=== PATIENT | male | born 1960 | race Caucasian/White ===

== ENCOUNTER 2023-05-17 12:29 | Observation (INO) | payer MEDICARE, SELFPAY ==
[2023-05-17] VITALS (7 sets, daily range): BP systolic 141–180; BP diastolic 78–92; PULSE 62–94; RESP 14–20; TEMP 36–36.8; O2SAT 95–100; BMI 28.1; BMI 29.0
--- NOTE | 2023-05-17 13:22 | EKG12_ITS ---
Test Reason : CP Blood Pressure : / mmHG Vent. Rate : 074 BPM Atrial Rate : 074 BPM P-R Int : 166 ms QRS Dur : 102 ms QT Int : 390 ms P-R-T Axes : 045 -22 079 degrees QTc Int : 432 ms Normal sinus rhythm Septal infarct , age undetermined Abnormal ECG Confirmed by ELOISE NUNES, TREASURE ([id number]), editor map LESLIE MONTALVO ([id number]) on 05/19/2023 1:39:53 PM Referred By: RU/ES Confirmed By:TREASURE NAVAS MD
--- NOTE | 2023-05-17 13:29 | NURSING ---
NO OLD EKGS
[2023-05-17] MEDS: Aspirin 81 MG TAB.CHEW 324 MG PO (13:31)
[2023-05-17 13:37] LABS: Absolute Lymphocyte Count 2.95 X10^3/uL (0.83-4.51); Absolute Neutrophil Count 4.3 X10^3/uL (2.0-7.7); Basophil# 0.04 X10^3/uL; Basophil% 0.5 % (0-1); Eosinophil# 0.16 X10^3/uL; Hematocrit 45.6 % (40-54); Hemoglobin 14.4 g/dL (13.0-16.5); Lymphocyte # 2.95 X10^3/ul (0.83-4.51); Lymphocyte % 36.2 % (19-41); Mean Corp Hgb Conc 31.6 g/dL (32-36); Mean Corpuscular Hgb 28.2 pg (27.0-32.0); Mean Corpuscular Volume 89.4 fL (80-94); Monocyte# 0.66 X10^3/uL; Monocyte% 8.1 % (0-10); NRBC Flagged by Analyzer 0 % (0-5); Neutrophil # 4.31 X10^3/uL (2.7-7.7); Platelet Count 204 K/mm3 (150-450); RBC Distribution Width CV 14.6 % (11.6-14.6); RBC Distribution Width SD 47.4 fl (35.1-43.9); White Blood Count 8.1 K/mm3 (4.4-11.0)
--- NOTE | 2023-05-17 13:45 | RAD_ITS ---
STUDY: X-RAY CHEST REASON FOR EXAM: Male, 62 years old. Chest pain TECHNIQUE: Single AP portable view of the chest. COMPARISON: None. FINDINGS: EKG electrodes are seen. Hyperinflation. Mild degree of vascular congestion. There is no demonstrated pleural abnormality. Normal size heart. Normal mediastinum and andreina. Normal visualized pulmonary arteries. Normal visualized aortic arch and descending thoracic aorta. There are diffuse degenerative changes of the visualized thoracic spine. Normal visualized ribs, clavicles, and shoulders. There is no demonstrated abnormality of the visualized soft tissue structures of the upper abdomen. RAD/Chest 1 View (Portable) IMPRESSION: Mild degree of vascular congestion. Electronically Signed: Paxton Nagel MD at 14:27 EDT ,
[2023-05-17 13:49] LABS: International Normalized Ratio 0.9; Prothrombin Time (Protime)PT. 12.3 SECONDS (11.7-14.9)
[2023-05-17 13:50] LABS: Partial Thromboplast Time 33.5 Seconds (24.1-36.2)
[2023-05-17 13:55] LABS: Anion Gap 4 (5-15); BUN 11 mg/dL (7-18); BUN/Creat Ratio 12.6 RATIO (10-20); Calcium,Total 9.3 mg/dL (8.5-10.1); Chloride 103 mmol/L (98-107); Creatinine, Serum 0.87 mg/dL (0.70-1.30); EST Glomerular Filtration Rate 94 mL/min (>60); Est Glom Filt Rate - Afr Amer 114 mL/min (>60); Estimated Creatinine Clearance 103.87 ml/min; Glucose 96 mg/dL (74-106); Potassium 3.9 mmol/L (3.5-5.1); Sodium Level 134 mmol/L (136-145); Troponin-I HS (w/2H Reflex) 19 pg/mL (3.0-78.0)
--- NOTE | 2023-05-17 14:08 | EDS_ITS ---
HPI History of Present Illness Chief Complaint: Chest Pain Informant: patient Onset/Context/Timing Onset: Days (5) Activity at onset: sudden Timing: Intermittent and Lasts (A couple minutes) Quality: Positive for Sharp Location: Left Parasternal, Left Chest and - (Left arm) Worsened By: Exertion Relieved By: Rest and NTG Associated Symptoms: Positive for Lightheadedness and Palpitations; Negative for Nausea, Vomiting, Diaphoresis, Dyspnea, Cough, Fever or Acid Reflux Narrative Narrative: Patient presents with chest pain that has been intermittent over the last 5 days. Patient states when it comes on it only last for couple minutes. Somet imes, it lasts for 30 to 45 minutes. Patient states that when it lasts that long he takes a sublingual nitroglycerin which relieves his pain. Patient states the pain is over the left parasternal area and radiates into his left chest and left arm. Patient states his pain comes on with exertion and goes away with rest. Patient admits to some lightheadedness when he stands up too quickly at times. Patient also admits to some occasional palpitations. Patient states this pain is different than with his prior heart attack. [facility] Medical History (Updated 05/17/23 @ 14:[address] Donaldo Encinas DO) Coronary artery disease Fibromyalgia Myocardial infarction Home Medications aspirin 81 mg tablet,delayed release (Ecotrin Low Strength) 81 mg PO DAILY HEART HEALTH 05/17/23 [History Last Taken 05/15/23] coQ10 (ubiquinol) 100 mg capsule 100 mg PO DAILY 05/17/23 [History Last Taken 05/17/23] cod liver oil 1 cap PO DAILY 05/17/23 [History Last Taken 05/17/23] Allergy/AdvReac Type Severity Reaction Status Date / Time gabapentin Allergy Intermediate Hives Verified 05/17/23 14:36 tramadol [From Ultram] AdvReac Intermediate super Verified 05/17/23 14:36 jittery Surgical History (Updated 05/17/23 @ 14:[address] Donaldo Encinas DO) History of surgical removal of intestinal structure Hx of appendectomy Hx of heart artery stent Social History (Updated 05/17/23 @ 14:[address] Donaldo Encinas DO) Smoking Status: Former smoker substance use type: marijuana ROS ROS ED Constitutional Constitutional ED: Denies chills or fever(s) Eyes Eyes: Denies blurry vision or change in vision ENT ENT ED: Denies rhinorrhea or sore throat Cardiovascular Cardiovascular: Reports chest pain and palpitations Respiratory/Chest Respiratory/Chest: Denies cough or dyspnea Gastrointestinal Gastrointestinal: Denies abdominal pain, nausea or vomiting Genitourinary Genitourinary ED: Denies dysuria or hematuria Musculoskeletal Musculoskeletal: Reports back pain and neck pain Integumentary Denies abscess or rash Neurologic Neurologic: Denies headache(s) or weakness Allergic/Immunologic Allergic/Immunologic ED: Denies mouth swelling or urticaria EXAM Physical Exam Const Vital Signs: 05/17/23 12:30 05/17/23 14:00 05/17/23 14:51 Temperature 97.5 F L 96.8 F L Temperature Source Temporal Temporal Pulse Rate 94 65 66 Respiratory Rate 14 16 20 H Blood Pressure 180/89 H 141/80 H 154/81 H Blood Pressure Mean 119 100 105 Pulse Ox 98 100 96 Oxygen Delivery Method Room Air Room Air Room Air 05/17/23 13:31 Temperature Temperature Source Pulse Rate Respiratory Rate Blood Pressure Blood Pressure Mean Pulse Ox 96 Oxygen Delivery Method Room Air Positive well nourished and well developed General Appearance ED: well developed and NAD HEENT normocephalic and atraumatic Eyes PERRL and EOMs intact bilaterally Neck supple and no JVD Chest Wall palpation of chest normal Resp normal respiratory effort and clear to auscultation bilaterally Effort and Inspection: Negative for respiratory distress Cardio regular rate and regular rhythm GI normal to inspection, nondistended, normoactive bowel sounds, soft to palpation, non-tender and non-distended Extremity normal to inspection General Extremety ED: Negative for edema or tenderness General Extremity: Negative for edema Neuro oriented x3, CN's II-XII intact bilaterally and no sensory deficits noted Sensorium / Orientation: awake and alert Motor Exam: strength 5/5 throughout Psych mental status grossly normal Heart Score History: Moderately Suspicious ECG: Nonspecific Repolarization Age: >45 - <65 years Risk Factors: >/= 3 Risk Factors or History of CAD Troponin: </= Normal Limit Score: 5 MDM MDM MDM Narrative Medical decision making narrative: Differential diagnosis includes cardiac dysrhythmia, cardiac ischemia, pneumonia, pneumothorax, electrolyte abnormality, anemia, musculoskeletal pain, and anxiety. EKG will be obtained to assess for cardiac dysrhythmia and cardiac ischemia. Chest x-ray will be obtained to assess for pneumonia and pneumothorax. CBC will be obtained to assess for leukocytosis and anemia. Basic metabolic profile will be obtained to assess for electrolyte abnormality and renal function. PT with INR and PTT will be obtained to assess for coagulopathy. High-sensitivity troponin will be obtained to assess for cardiac ischemia. 2-hour repeat high-sensitivity troponin will be obtained to assess for ongoing cardiac ischemia. Patient has a Wells score of 0. I do not feel this is from a pulmonary embolism. Lab Data Attestation: I reviewed the patient's lab results. Lab results narrative: CBC was reviewed and was within normal limits. Basic metabolic profile was reviewed and was within normal limits. PT with INR and PTT were reviewed and were within normal limits. Initial high-sensitivity troponin was reviewed and was normal at 19. Labs: Laboratory Results - last 24 hr 05/17/23 13:04 WBC 8.1 RBC 5.10 Hgb 14.4 Hct 45.6 MCV 89.4 MCH 28.2 MCHC 31.6 L RDW Std Deviation 47.4 H RDW Coeff of Yamile 14.6 Plt Count 204 MPV 10.0 Immature Gran % (Auto) 0.200 Neut % (Auto) 53.0 Lymph % (Auto) 36.2 [place]oshone % (Auto) 8.1 Eos % (Auto) 2.0 Baso % (Auto) 0.5 Absolute Neuts (auto) 4.3 Absolute Lymphs (auto) 2.95 Nucleated RBC % 0 PT 12.3 INR 0.9 APTT 33.5 Sodium 134 L Potassium 3.9 Chloride 103 Carbon Dioxide 27.0 Anion Gap 4 L BUN 11 Creatinine 0.87 Estim Creat Clear Calc 103.87 Est GFR (MDRD) Af Amer 114 Est GFR (MDRD) Non-Af 94 BUN/Creatinine Ratio 12.6 Glucose 96 Calcium 9.3 Troponin I High Sens 19 Radiography Chest X-Ray - ED: 1 View, Read by ED Physician, Read by Radiologist and No Acute Disease Diagnostic Testing: Clinical Impression(s) from Imaging Studies Chest X-Ray 05/17/23 13:45 IMPRESSION: Mild degree of vascular congestion. Electronically Signed: Paxton Nagel MD at 14:27 EDT , Portable 1 view chest x-ray was obtained. On my independent interpretation, lung de la cruz are clear. There is normal cardiac silhouette. Bony thorax is normal. There is no acute process noted. Radiologist also interpreted the x- ray and noted a mild degree of vascular congestion. EKG Initial EKG: Attestation: I personally reviewed and interpreted this EKG as follows: Interpretation: Sinus Rhythm (74) and Non-Specific ST Changes Comments: EKG was obtained. On my independent interpretation, it showed a normal sinus rhythm with a rate of 74. DE interval, QRS interval, and QTc intervals were all normal. There is borderline left axis deviation at -22. There are nonspecific ST-T wave changes in leads V1, V2, I, and aVL. Prior EKG tracings: not available for review Prior: No Prior Management Discussion w/another healthcare provider: Hospitalist Treatment and Re-Evaluation :: Patient was given aspirin. Patient was feeling better on reevaluation. Patient has a HEART score of 5. Since his last stress test has been more than 1 year ago, I recommended admission to the hospital for further evaluation of his chest pain. Patient is agreeable with this. Case was discussed with the hospitalist we will admit the patient to his service. Patient understood and was agreeable with the plan. All questions were answered. Discharge Plan Dx/Rx/DC Orders Clinical Impression: History of coronary artery disease, Chest pain Disposition Disposition: Acute Care [facility]
--- NOTE | 2023-05-17 14:31 | NURSING ---
PCU OBS TERELETSKY CHEST PAIN, ELEVATED BLOOD PRESSURE, HX OF CAD
[2023-05-17 15:30] LABS: Reflex Troponin-HS? (from REC) Y
[2023-05-17 16:00] LABS: Troponin-I HS 24 pg/mL (3.0-78.0)
--- NOTE | 2023-05-17 16:30 | CASEMGMT ---
Insurance review for hospitals In-network with [facility] insurance if transfer is recommended is as follows: [facility], [place], [facility], [facility], [facility]), , and [facility]. Shyann Garcia, Discharge Planning Asst.
[2023-05-17 16:38] LABS: Cholesterol 298 mg/dL (200); High Density Lipoprotein 45 mg/dL; Triglycerides 94 mg/dL; Very Low Density Lipoprotein 19 mg/dL (5-40)
--- NOTE | 2023-05-17 17:07 | PCM.CONS.C ---
Assessment & Plan Assessment/Plan (1) Chest pain: QUALIFIERS: Ischemic chest pain type: unstable angina pectoris Chest pain type: chest pain due to myocardial ischemia Qualified Code(s): I20.0 - Unstable angina PLAN: Patient presents with chest discomfort and with his previous history of coronary artery disease it appears to be fairly typical. I would recommend at this time that we start him on aspirin, high intensity statin, beta-christiano and schedule him for left heart catheterization. The risk benefits alternatives have been explained to him he understands and agrees to proceed. Depending on the findings further recommendations will be made. (2) Hypertension: QUALIFIERS: Hypertension type: primary hypertension Qualified Code(s): I10 - Essential (primary) hypertension PLAN: His blood pressure does not appear to be under very good control at this time. I would recommend starting him on a beta-christiano as well as an BILLY inhibitor. We will continue to monitor the above. (3) Hyperlipemia: QUALIFIERS: Hyperlipidemia type: pure hypercholesterolemia Qualified Code(s): E78.00 - Pure hypercholesterolemia, unspecified PLAN: He does have significant hyperlipidemia with LDL over 200. My recommendation will be to start high intensity statin at this time. Thank you for allowing me to participate in the care of your patient. Please don't hesitate to call if any issues arise. HPI Consult Data Date of Consult: 05/17/23 HPI Narrative HPI Narrative: EDWARD MILLAN, is a 62 M who presents to the emergency room with complaints of chest discomfort which has been going on for a few weeks. He says that he recently relocated here from [place] and has had a previous history of coronary artery disease. During the COVID time he had supply chain problems and so stopped taking his medications. He denies any dizziness or diaphoresis near syncope or syncope. He did describe chest discomfort which appeared to be pressure-like in sensation on the left side with mild radiation. Cardiac enzymes were noted to be normal and initial EKG did not demonstrate any obvious evidence of ischemia. Cardiology was asked to see him. He was noted to have elevated blood pressure. [facility] Medical History (Updated 05/17/23 @ 17:[address] Yogesh Fenton MD) Coronary artery disease Fibromyalgia Former smoker Hypertension Irregular heart beat Myocardial infarction Home Medications aspirin 81 mg tablet,delayed release (Ecotrin Low Strength) 81 mg PO DAILY HEART HEALTH 05/17/23 [History Last Taken 05/15/23] coQ10 (ubiquinol) 100 mg capsule 100 mg PO DAILY 05/17/23 [History Last Taken 05/17/23] cod liver oil 1 cap PO DAILY 05/17/23 [History Last Taken 05/17/23] Allergy/AdvReac Type Severity Reaction Status Date / Time gabapentin Allergy Intermediate Hives Verified 05/17/23 14:36 tramadol [From Ultram] AdvReac Intermediate super Verified 05/17/23 14:36 jittery Surgical History History of surgical removal of intestinal structure Hx of appendectomy Hx of heart artery stent Social History Smoking Status: Former smoker substance use type: marijuana ROS Constitutional Constitutional: Denies fever(s) or weight loss Eyes Eyes: Reports systems reviewed and no addt'l complaints, except as documented ENT HEENT: Reports systems reviewed and no addt'l complaints, except as documented Cardiovascular Cardiovascular: Reports chest pain at rest and chest pain with activity; Denies dyspnea at rest, dyspnea on exertion, edema, palpitations or paroxysmal nocturnal dyspnea Respiratory/Chest Respiratory/Chest: Denies dyspnea on exertion, productive cough, shortness of breath at rest or shortness of breath with exertion Gastrointestinal Gastrointestinal: Denies change in bowel habits, nausea, vomiting or weight changes Genitourinary Genitourinary: Denies difficulty urinating Musculoskeletal Musculoskeletal: Denies joint stiffness or muscle weakness Integumentary Integumentary: Denies lesions Neurologic Neurologic: Denies dizziness or syncope Psychiatric Psychiatric: Denies anxiety Endocrine Endocrinology: Denies excessive sweating or fatigue Hematologic/Lymphatic Hematologic/Lymphatic: Denies anemia Allergic/Immunologic Allergic/Immunologic: Denies seasonal rhinorrhea Physical Exam Const alert, oriented x3 and no apparent distress General Appearance: cooperative HEENT hearing grossly normal bilaterally Head and Scalp: atraumatic Eyes EOMs intact bilaterally Neck General: normal visual inspection Chest inspection of chest normal and palpation of chest normal Resp normal respiratory effort Auscultation: clear to auscultation bilaterally Cardio regular rate, regular rhythm, S1 normal heart sound and S2 normal heart sound Jugular Venous Distention: JVD GI normal to inspection, nondistended, normoactive bowel sounds Extremity normal capillary refill and no pedal edema Peripheral Pulses: Yes pulses 2+ throughout and femoral pulses present Skin no rashes or lesions noted Neuro oriented x3 and CN's II-XII intact bilaterally Psych Appearance: grossly normal and appropriate Risk Stratification Risk Stratification Applicable: Yes Age >/= 65: No >/= 3 CAD Risk Factors (HTN, HLD, DM, family hx of CAD, or current smoker): Yes Aspirin Use in the Past 7 Days: No Severe Angina (>/= episodes in 24 hours): Yes EKG ST Changes >/= 0.5mm: No Positive Cardiac Marker: No DEMARIO Risk Stratification Score: 2 DEMARIO % Risk: 8% Risk Objective Data Vital Signs: Vital Signs Temp Pulse Resp BP Pulse Ox O2 Del Method 98.3 F 67 14 147/81 H 96 Room Air 05/17/23 15:54 05/17/23 15:54 05/17/23 15:54 05/17/23 15:54 05/17/23 15:54 05/17/23 16:33 Oxygen Delivery Method Room Air Weight: 232 lb 9.403 oz Body Mass Index (BMI) 29.0 Lab / Micro Data 05/17/23 13:04 05/17/23 13:04 Labs: Laboratory Results - last 24 hr 05/17/23 13:04: WBC 8.1, RBC 5.10, Hgb 14.4, Hct 45.6, MCV 89.4, MCH 28.2, MCHC 31.6 L, RDW Std Deviation 47.4 H, RDW Coeff of Yamile 14.6, Plt Count 204, MPV 10.0, Immature Gran % (Auto) 0.200, Neut % (Auto) 53.0, Lymph % (Auto) 36.2, [place] % (Auto) 8.1, Eos % (Auto) 2.0, Baso % (Auto) 0.5, Absolute Neuts (auto) 4.3, Absolute Lymphs (auto) 2.95, Nucleated RBC % 0, PT 12.3, INR 0.9, APTT 33.5, Sodium 134 L, Potassium 3.9, Chloride 103, Carbon Dioxide 27.0, Anion Gap 4 L, BUN 11, Creatinine 0.87, Estim Creat Clear Calc 103.87, Est GFR (MDRD) Af Amer 114, Est GFR (MDRD) Non-Af 94, BUN/Creatinine Ratio 12.6, Glucose 96, Calcium 9.3, Troponin I High Sens 19 05/17/23 15:34: Troponin I High Sens 24, Triglycerides 94, Cholesterol 298 H, LDL Cholesterol 234 H, VLDL Cholesterol 19, HDL Cholesterol 45 Cardiology Labs/Tests 05/17/23 13:04: WBC 8.1, RBC 5.10, Hgb 14.4, Hct 45.6, MCV 89.4, MCH 28.2, MCHC 31.6 L, Plt Count 204, MPV 10.0, Immature Gran % (Auto) 0.200, Neut % (Auto) 53.0, Lymph % (Auto) 36.2, Bladen % (Auto) 8.1, Eos % (Auto) 2.0, Baso % (Auto) 0.5, Absolute Neuts (auto) 4.3, Nucleated RBC % 0, PT 12.3, INR 0.9, APTT 33.5, Sodium 134 L, Potassium 3.9, Chloride 103, Carbon Dioxide 27.0, Anion Gap 4 L, BUN 11, Creatinine 0.87, Est GFR (MDRD) Af Amer 114, Est GFR (MDRD) Non-Af 94, BUN/Creatinine Ratio 12.6, Glucose 96, Calcium 9.3 05/17/23 15:34: Triglycerides 94, Cholesterol 298 H, LDL Cholesterol 234 H, VLDL Cholesterol 19, HDL Cholesterol 45 Rhythm: EKG: ECHO: Stress Test: Cardiac Cath: PCI: CT Surgery: Holter monitor: EPS: PPM: CXR: Chest CT Scan: Radiography Diagnostic Testing: Radiology Impression Chest X-Ray 05/17/23 13:45 IMPRESSION: Mild degree of vascular congestion. Electronically Signed: Paxton Nagel MD at 14:27 EDT ,
--- NOTE | 2023-05-17 17:14 | EKG12_ITS ---
Test Reason : CP Blood Pressure : / mmHG Vent. Rate : 058 BPM Atrial Rate : 058 BPM P-R Int : 170 ms QRS Dur : 100 ms QT Int : 424 ms P-R-T Axes : 071 189 103 degrees QTc Int : 416 ms Sinus bradycardia Right superior axis deviation Cannot rule out Anteroseptal infarct , age undetermined Abnormal ECG When compared with ECG of 17-MAY-2023 12:39, MANUAL COMPARISON REQUIRED, DATA IS UNCONFIRMED Confirmed by ELOISE NUNES, TREASURE ([id number]), photo editor LESLIE MONTALVO ([id number]) on 06/21/2023 1:23:57 PM Referred By: MARIA C Confirmed By:TREASURE NAVAS MD
[2023-05-17 20:01] LABS: Troponin-I HS 28 pg/mL (3.0-78.0)
[2023-05-17] MEDS: Atorvastatin Calcium 80 MG Tablet PO (21:09)
[2023-05-17] MEDS: Acetaminophen 325 MG Tablet 650 MG PO (21:09)
[2023-05-17] MEDS: Lisinopril 20 MG Tablet PO (21:10)
[2023-05-17] MEDS: Nitroglycerin (INPATIENT USE) 0.4 MG TAB.SUBL SL (21:23)
--- NOTE | 2023-05-17 21:29 | PCM.HP.STD ---
HPI - General General Date of Admission: 05/17/23 Date of Service: 05/17/23 Chief Complaint: Chest pain HPI Narrative EDWARD MILLAN, is a 62 M who presents to the emergency room at [facility] for evaluation of intermittent chest pain that he has had over the last several days. Patient states that the chest pain is sharp in nature and it radiates into his left shoulder and goes down his left arm. Patient has a history of coronary artery disease and he states he has had a history of stent placement in the past-patient states that he has had 5 stents placed, his last stent placement was approximately 5 years ago in [place]. 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 Patient states the episodes of chest pain last several minutes, he has taken nitroglycerin for several of these episodes and it has helped, he states that he gets the chest discomfort on exertion such as walking his dog. Again, patient states the chest pain is sharp in nature, he states it does not feel like the chest pain he has had in the past when he had his 2 heart attacks. Work-up in the emergency room included an EKG which showed a normal sinus rhythm without evidence of acute ischemic changes, patient's cardiac enzymes were unremarkable, chemistry profile was unremarkable and patient's CBC was unremarkable. Patient states that he stopped many of his medications during the COVID-19 epidemic, and contacting the patient's previous flash welding machine operator office, it was noted that he had not been seen in the office for 3 to 4 years. Patient takes an 81 mg aspirin daily, he does not take any cholesterol medications-he told this examiner that they did not lower his cholesterol and they caused muscle pain so he stopped these medications. Patient states he was on Plavix at one time but he was taken off by his previous flash welding machine operator. Patient will be placed in observation status on PCU, I contacted Dr. Fenton and discussed the case with him and he felt it best to proceed with a cardiac catheterization, serial cardiac enzymes will be obtained and he will be monitored on PCU. I have ordered a lipid profile, I told the patient that he most likely will have to be on some medication for his cholesterol whether he can be tried on a statin again or whether he will need an injectable medication if his cholesterol is elevated. [facility] Medical History (Updated 05/17/23 @ 17:[address] Yogesh Fenton MD) Coronary artery disease Fibromyalgia Former smoker Hypertension Irregular heart beat Myocardial infarction Home Medications aspirin 81 mg tablet,delayed release (Ecotrin Low Strength) 81 mg PO DAILY HEART HEALTH 05/17/23 [History Last Taken 05/15/23] coQ10 (ubiquinol) 100 mg capsule 100 mg PO DAILY 05/17/23 [History Last Taken 05/17/23] cod liver oil 1 cap PO DAILY 05/17/23 [History Last Taken 05/17/23] Allergy/AdvReac Type Severity Reaction Status Date / Time gabapentin Allergy Intermediate Hives Verified 05/17/23 14:36 tramadol [From Ultram] AdvReac Intermediate super Verified 05/17/23 14:36 jittery Surgical History History of surgical removal of intestinal structure Hx of appendectomy Hx of heart artery stent Social History Smoking Status: Former smoker substance use type: marijuana ROS Constitutional Constitutional: Denies anorexia, change in weight, chills, fatigue, fever(s), night sweats or weakness Eyes Eyes: Denies blurry vision, change in vision, discharge from eye(s) or eye pain Cardiovascular Cardiovascular: Reports chest pain; Denies claudication, dyspnea on exertion, edema, lightheadedness, orthopnea or palpitations Respiratory/Chest Respiratory/Chest: Denies cough, excessive phlegm production, hemoptysis, productive cough, shortness of breath at rest or shortness of breath with exertion Gastrointestinal Gastrointestinal: Denies abdominal pain, coffee ground emesis, constipation, diarrhea, dyspepsia, hematemesis, hematochezia, melena, nausea or vomiting Genitourinary Genitourinary: Denies dysuria, hematuria, urinary frequency, urinary hesitancy, urinary incontinence or urinary urgency Musculoskeletal Musculoskeletal: Denies back pain, joint pain, joint stiffness, joint swelling, myalgias or neck pain Neurologic Neurologic: Denies abnormal gait, abnormal speech, confusion, disequilibrium, dizziness, focal weakness, headache(s), loss of vision, numbness, other visual disturbances, paresthesias, syncope or tingling Psychiatric Psychiatric: Denies anxiety, cognitive impairment, depression, irritability, mood swings or suicidal ideation Endocrine Endocrinology: Denies change in body appearance, cold intolerance, excessive sweating, heat intolerance, polydipsia or polyuria Hematologic/Lymphatic Hematologic/Lymphatic: Denies none, anemia, easy bleeding, easy bruising or lymphadenopathy Allergic/Immunologic Allergic/Immunologic: Denies rhinitis, urticaria, eczemia or asthma Vital Signs Vital Signs Vital Signs: 05/17/23 12:30 05/17/23 14:00 05/17/23 14:51 Temperature 97.5 F L 96.8 F L Temperature Source Temporal Temporal Pulse Rate 94 65 66 Respiratory Rate 14 16 20 H Respiratory Effort Respiratory Depth Respiratory Pattern Blood Pressure 180/89 H 141/80 H 154/81 H Blood Pressure Mean 119 100 105 Blood Pressure Source Blood Pressure Position Blood Pressure Location Pulse Ox 98 100 96 Oxygen Delivery Method Room Air Room Air Room Air 05/17/23 15:00 05/17/23 13:31 05/17/23 15:54 Temperature 98.3 F Temperature Source Oral Pulse Rate 62 67 Respiratory Rate 14 14 Respiratory Effort Respiratory Depth Respiratory Pattern Blood Pressure 142/78 H 147/81 H Blood Pressure Mean 99 103 Blood Pressure Source Monitor Blood Pressure Position Semi-Fowlers Blood Pressure Location Right Arm Pulse Ox 95 96 96 Oxygen Delivery Method Room Air Room Air Room Air 05/17/23 16:33 05/17/23 21:00 Temperature 98.0 F Temperature Source Oral Pulse Rate 67 Respiratory Rate 16 Respiratory Effort Normal Non-Labored Respiratory Depth Normal Respiratory Pattern Normal Blood Pressure 146/92 H Blood Pressure Mean 110 Blood Pressure Source Monitor Blood Pressure Position Semi-Fowlers Blood Pressure Location Right Arm Pulse Ox 95 Oxygen Delivery Method Room Air Room Air Weight Weight: 105.5 kg Body Mass Index (BMI) 29.0 Physical Exam Const alert, oriented x3, no apparent distress, average body habitus and healthy appearing General Appearance: cooperative, well kempt and well developed Orientation / Consciousness: awake, oriented to person, oriented to place and oriented to time HEENT normocephalic, head/scalp atraumatic, hearing grossly normal bilaterally and moist oral mucous membranes Eyes PERRL, EOMs intact bilaterally and conjunctivae normal Neck supple, no JVD, thyroid normal and no carotid bruits General: trachea midline Resp normal respiratory effort, no retractions, no use of accessory muscles and clear to auscultation bilaterally Auscultation: Negative for rales, rhonchi or wheezes Cardio regular rate, regular rhythm, S1 normal heart sound, S2 normal heart sound, no murmurs, no rub and no gallops GI normal to inspection, nondistended, normoactive bowel sounds, soft to palpation, non-tender and non-distended Extremity no clubbing, cyanosis or edema Skin no rashes or lesions noted General Skin Exam: no breakdown Neuro oriented x3, CN's II-XII intact bilaterally, moves all extremities, no focal motor deficits and no sensory deficits noted Sensorium / Orientation: awake and alert Speech: speech normal Psych affect normal Results Lab / Micro Data 05/17/23 13:04 05/17/23 13:04 Labs: Laboratory Results - last 24 hr 05/17/23 13:04: WBC 8.1, RBC 5.10, Hgb 14.4, Hct 45.6, MCV 89.4, MCH 28.2, MCHC 31.6 L, RDW Std Deviation 47.4 H, RDW Coeff of Yamile 14.6, Plt Count 204, MPV 10.0, Immature Gran % (Auto) 0.200, Neut % (Auto) 53.0, Lymph % (Auto) 36.2, [place] % (Auto) 8.1, Eos % (Auto) 2.0, Baso % (Auto) 0.5, Absolute Neuts (auto) 4.3, Absolute Lymphs (auto) 2.95, Nucleated RBC % 0, PT 12.3, INR 0.9, APTT 33.5, Sodium 134 L, Potassium 3.9, Chloride 103, Carbon Dioxide 27.0, Anion Gap 4 L, BUN 11, Creatinine 0.87, Estim Creat Clear Calc 103.87, Est GFR (MDRD) Af Amer 114, Est GFR (MDRD) Non-Af 94, BUN/Creatinine Ratio 12.6, Glucose 96, Calcium 9.3, Troponin I High Sens 19 05/17/23 15:34: Troponin I High Sens 24, Triglycerides 94, Cholesterol 298 H, LDL Cholesterol 234 H, VLDL Cholesterol 19, HDL Cholesterol 45 05/17/23 19:05: Troponin I High Sens 28 Radiology Impression Chest X-Ray 09/12/23 13:45 IMPRESSION: Mild degree of vascular congestion. Electronically Signed: Paxton Nagel MD at 14:27 EDT , Assessment & Plan Assessment/Plan (1) Chest pain: QUALIFIERS: Chest pain type: chest pain due to myocardial ischemia Ischemic chest pain type: unstable angina pectoris Qualified Code(s): I20.0 - Unstable angina PLAN: Plan 1. 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 Lipid profile was ordered. #2 noncompliance with medical regimen-patient discontinued several of his medications on his own, he verifies that he was on metoprolol at one time and a statin and did not like the side effects and stopped them. #3 fibromyalgia-patient does not take any medicine currently for fibromyalgia Total clinical time spent by myself addressing the patient's medical issues, reviewing all of his data, and collaborating with patient's care team: 55 minutes Charges/Coding Visit Charges Inpatient E&M: 56308 Init Hosp L2
[2023-05-18] VITALS (12 sets, daily range): BP systolic 115–164; BP diastolic 64–94; PULSE 59–72; RESP 14–16; TEMP 36.6; O2SAT 95–100
--- NOTE | 2023-05-18 05:55 | EKG12_ITS ---
Test Reason : AM EKG Blood Pressure : / mmHG Vent. Rate : 059 BPM Atrial Rate : 059 BPM P-R Int : 164 ms QRS Dur : 096 ms QT Int : 444 ms P-R-T Axes : 059 001 086 degrees QTc Int : 439 ms Sinus bradycardia Anteroseptal infarct , age undetermined T wave abnormality, consider lateral ischemia Abnormal ECG When compared with ECG of 17-MAY-2023 17:14, MANUAL COMPARISON REQUIRED, DATA IS UNCONFIRMED Confirmed by ELOISE NUNES, TREASURE ([id number]), supervising film or videotape editor LESLIE MONTALVO ([id number]) on 06/15/2023 1:50:52 PM Referred By: Confirmed By:TREASURE NAVAS MD
[2023-05-18] MEDS: Lisinopril 20 MG Tablet PO (07:41)
[2023-05-18] MEDS: Aspirin E.C. 81 MG Tablet PO (07:41)
[2023-05-18] MEDS: Metoprolol(XL)Succ 25 MG Tablet PO ×2 (07:41→09:59)
--- NOTE | 2023-05-18 07:48 | NURSING ---
Called report to Gordo MARIE in labeling associate
--- NOTE | 2023-05-18 08:54 | PN.HOSP_ITS ---
Reason for Visit Reason for Visit: Diagnoses Pure hypercholesterolemia, unspecified (05/17/23) Essential (primary) hypertension (05/17/23) Unstable angina (05/17/23) Subjective Subjective Seen post-cath. No current complaints. Objective Data Objective Data Vital Signs: Vital Signs Temp Pulse Resp BP Pulse Ox O2 Del Method 36.6 C 66 16 131/76 H 100 Room Air 05/18/23 07:39 05/18/23 07:41 05/18/23 07:39 05/18/23 07:39 05/18/23 07:39 05/18/23 07:40 Oxygen Delivery Method Room Air Weight: 105.5 kg Body Mass Index (BMI) 29.0 Intake & Output: Intake and Output for Last 24 Hours 05/16/23 05/17/23 05/18/23 23:59 23:59 23:59 Intake Total 520 / 620 100 / 100 Balance 520 / 620 100 / 100 Lab / Micro Data 05/17/23 13:04 05/17/23 13:04 Labs: Laboratory Results - last 24 hr 05/17/23 13:04: WBC 8.1, RBC 5.10, Hgb 14.4, Hct 45.6, MCV 89.4, MCH 28.2, MCHC 31.6 L, RDW Std Deviation 47.4 H, RDW Coeff of Yamile 14.6, Plt Count 204, MPV 10.0, Immature Gran % (Auto) 0.200, Neut % (Auto) 53.0, Lymph % (Auto) 36.2, [place] % (Auto) 8.1, Eos % (Auto) 2.0, Baso % (Auto) 0.5, Absolute Neuts (auto) 4.3, Absolute Lymphs (auto) 2.95, Nucleated RBC % 0, PT 12.3, INR 0.9, APTT 33.5, Sodium 134 L, Potassium 3.9, Chloride 103, Carbon Dioxide 27.0, Anion Gap 4 L, BUN 11, Creatinine 0.87, Estim Creat Clear Calc 103.87, Est GFR (MDRD) Af Amer 114, Est GFR (MDRD) Non-Af 94, BUN/Creatinine Ratio 12.6, Glucose 96, Calcium 9.3, Troponin I High Sens 19 05/17/23 15:34: Troponin I High Sens 24, Triglycerides 94, Cholesterol 298 H, LDL Cholesterol 234 H, VLDL Cholesterol 19, HDL Cholesterol 45 05/17/23 19:05: Troponin I High Sens 28 Radiography Diagnostic Testing: Radiology Impression Chest X-Ray 05/17/23 13:45 IMPRESSION: Mild degree of vascular congestion. Electronically Signed: Paxton Nagel MD at 14:27 EDT , Physical Exam Const alert and no apparent distress HEENT head/scalp atraumatic and moist oral mucous membranes Resp normal respiratory effort, no retractions, no use of accessory muscles and clear to auscultation bilaterally Cardio regular rate, regular rhythm, S1 normal heart sound and S2 normal heart sound GI normal to inspection, nondistended, normoactive bowel sounds Assessment & Plan Assessment/Plan (1) Chest pain: QUALIFIERS: Chest pain type: chest pain due to myocardial ischemia Ischemic chest pain type: unstable angina pectoris Qualified Code(s): I20.0 - Unstable angina PLAN: Troponins negative. LHC: shows an EF of 40%, Left main with stenosis <30%, previously stented LAD subtotally occluded proximally and distal collaterals, circumflex <30%, RCA mild to moderate diffuse disease with dital collaterals DW Dr. Fenton, who feels the occlusion is chronic and feels no additional intervention is needed and to continue medical mgmt. Continue ASA, metoprolol, lisinopril Pt has known statin intolerance with severe myalgias. check echo Pt is back to [place] permanently after living in [place] for the past 12 years. (2) Hyperlipemia: QUALIFIERS: Hyperlipidemia type: pure hypercholesterolemia Qualified Code(s): E78.00 - Pure hypercholesterolemia, unspecified PLAN: Intolerant of statins. Try ezetimibe. PLAN: Plan Chronic conditions: * fibromyalgia-patient does not take any medicine currently for fibromyalgia Disposition: to home after bedrest and echo results. Charges/Coding Visit Charges Inpatient E&M: 33160 Subs Hosp L2
--- NOTE | 2023-05-18 09:05 | PCM.PN.CARD ---
Subjective Subjective Patient seen and evaluated. Underwent heart catheterization today. Objective Data Vital Signs: Vital Signs Temp Pulse Resp BP Pulse Ox O2 Del Method 97.8 F 66 16 131/76 H 100 Room Air 05/18/23 07:39 05/18/23 07:41 05/18/23 07:39 05/18/23 07:39 05/18/23 07:39 05/18/23 07:40 Oxygen Delivery Method Room Air Weight: 232 lb 9.403 oz Body Mass Index (BMI) 29.0 Intake & Output: Intake and Output for Last 24 Hours 05/16/23 05/17/23 05/18/23 23:59 23:59 23:59 Intake Total 520 / 620 100 / 100 Balance 520 / 620 100 / 100 Lab / Micro Data 05/17/23 13:04 05/17/23 13:04 Labs: Laboratory Results - last 24 hr 05/17/23 13:04: WBC 8.1, RBC 5.10, Hgb 14.4, Hct 45.6, MCV 89.4, MCH 28.2, MCHC 31.6 L, RDW Std Deviation 47.4 H, RDW Coeff of Yamile 14.6, Plt Count 204, MPV 10.0, Immature Gran % (Auto) 0.200, Neut % (Auto) 53.0, Lymph % (Auto) 36.2, [place] % (Auto) 8.1, Eos % (Auto) 2.0, Baso % (Auto) 0.5, Absolute Neuts (auto) 4.3, Absolute Lymphs (auto) 2.95, Nucleated RBC % 0, PT 12.3, INR 0.9, APTT 33.5, Sodium 134 L, Potassium 3.9, Chloride 103, Carbon Dioxide 27.0, Anion Gap 4 L, BUN 11, Creatinine 0.87, Estim Creat Clear Calc 103.87, Est GFR (MDRD) Af Amer 114, Est GFR (MDRD) Non-Af 94, BUN/Creatinine Ratio 12.6, Glucose 96, Calcium 9.3, Troponin I High Sens 19 05/17/23 15:34: Troponin I High Sens 24, Triglycerides 94, Cholesterol 298 H, LDL Cholesterol 234 H, VLDL Cholesterol 19, HDL Cholesterol 45 05/17/23 19:05: Troponin I High Sens 28 Cardiology Labs/Tests 05/17/23 13:04: WBC 8.1, RBC 5.10, Hgb 14.4, Hct 45.6, MCV 89.4, MCH 28.2, MCHC 31.6 L, Plt Count 204, MPV 10.0, Immature Gran % (Auto) 0.200, Neut % (Auto) 53.0, Lymph % (Auto) 36.2, [place] % (Auto) 8.1, Eos % (Auto) 2.0, Baso % (Auto) 0.5, Absolute Neuts (auto) 4.3, Nucleated RBC % 0, PT 12.3, INR 0.9, APTT 33.5, Sodium 134 L, Potassium 3.9, Chloride 103, Carbon Dioxide 27.0, Anion Gap 4 L, BUN 11, Creatinine 0.87, Est GFR (MDRD) Af Amer 114, Est GFR (MDRD) Non-Af 94, BUN/Creatinine Ratio 12.6, Glucose 96, Calcium 9.3 05/17/23 15:34: Triglycerides 94, Cholesterol 298 H, LDL Cholesterol 234 H, VLDL Cholesterol 19, HDL Cholesterol 45 Rhythm: EKG: ECHO: Stress Test: Cardiac Cath: PCI: CT Surgery: Holter monitor: EPS: PPM: CXR: Chest CT Scan: Radiography Diagnostic Testing: Radiology Impression Chest X-Ray 05/17/23 13:45 IMPRESSION: Mild degree of vascular congestion. Electronically Signed: Paxton Nagel MD at 14:27 EDT Reading Location ID and State: [address] [place] [address] , Service support , Physical Exam Const alert, oriented x3, no apparent distress, average body habitus and healthy appearing General Appearance: cooperative, well kempt and well developed Orientation / Consciousness: awake, oriented to person, oriented to place and oriented to time HEENT normocephalic, head/scalp atraumatic, hearing grossly normal bilaterally and moist oral mucous membranes Eyes PERRL, EOMs intact bilaterally and conjunctivae normal Neck supple, no JVD, thyroid normal and no carotid bruits General: trachea midline Resp normal respiratory effort, no retractions, no use of accessory muscles and clear to auscultation bilaterally Auscultation: Negative for rales, rhonchi or wheezes Cardio regular rate, regular rhythm, S1 normal heart sound, S2 normal heart sound, no murmurs, no rub and no gallops GI normal to inspection, nondistended, normoactive bowel sounds, soft to palpation, non-tender and non-distended Extremity no clubbing, cyanosis or edema Skin no rashes or lesions noted General Skin Exam: no breakdown Neuro oriented x3, CN's II-XII intact bilaterally, moves all extremities, no focal motor deficits and no sensory deficits noted Sensorium / Orientation: awake and alert Speech: speech normal Psych affect normal Assessment & Plan Assessment/Plan (1) Chest pain: QUALIFIERS: Chest pain type: chest pain due to myocardial ischemia Ischemic chest pain type: unstable angina pectoris Qualified Code(s): I20.0 - Unstable angina PLAN: Patient presents with chest discomfort and with his previous history of coronary artery disease it appears to be fairly typical. Cardiac catheterization today demonstrated the following: Left main coronary artery with 20% stenosis. Left anterior descending artery previously stented with subtotal occlusion noted proximally and the entire stent is noted to be occluded with distal right to left collaterals seen filling the LAD. Left circumflex artery with mild disease Dominant right coronary artery with 30% diffuse stenosis and right to left collaterals. Left ventricular systolic dysfunction with estimated ejection fraction of 40% with anterior hypokinesis present. Based on the above angiographic findings the patient will be treated with medical therapy because it was thought that the occlusion was old. Patient is not considered a candidate for PCI. (2) Hypertension: QUALIFIERS: Hypertension type: primary hypertension Qualified Code(s): I10 - Essential (primary) hypertension PLAN: His blood pressure does not appear to be under very good control at this time. I would recommend starting him on a beta-christiano as well as an BILLY inhibitor. We will continue to monitor the above. (3) Hyperlipemia: QUALIFIERS: Hyperlipidemia type: pure hypercholesterolemia Qualified Code(s): E78.00 - Pure hypercholesterolemia, unspecified PLAN: He does have significant hyperlipidemia with LDL over 200. My recommendation will be to start high intensity statin at this time. Thank you for allowing me to participate in the care of your patient. Please don't hesitate to call if any issues arise.
--- NOTE | 2023-05-18 09:22 | CL.D_ITS ---
Patient Name: EDWARD MILLAN Study Date: 05/18/2023 Performing: Yogesh Fenton MD Ht: 75 inches 190.5 cm : 1960 Wt: 232.59 lbs 105.5 kg Age: 62 Gender: male BSA: 2.34 PROCEDURE(S) PERFORMED [id number])LHC/COR/LV CLINICAL PROFILE AND INDICATIONS Indications: Suspected CAD Heart Failure: None Stress/Imaging Stress/Image Study Performed: No CAD Presentations: Unstable angina. CONCLUSIONS Known coronary artery disease with subtotally occluded left anterior descending artery with collateralization of the distal portion and mild left ventricular systolic dysfunction. RECOMMENDATIONS Medical therapy We will consider viability scan later on. DESCRIPTION OF PROCEDURE The patient arrived to the procedure lab. The risks and benefits of the procedure as well as a full description of our services here and current unavailability of surgical backup were fully explained to the patient and/or their significant other prior to the catheterization. The Timeout was completed, verifying the correct patient and procedure. The patient's procedural site was prepped and draped in the usual fashion. Local anesthetic was given subcutaneously to right radial region with Lidocaine 2%. Local anesthetic was given subcutaneously to right groin region with Lidocaine 2%. Using a modified Seldinger technique, Left Coronary Artery selective angiography was performed in multiple views using a 5 Fr. JL4 catheter. Right Coronary Artery selective angiography was then performed in multiple views using a 5 Fr. 3DRC (Rylan) catheter. Left Ventriculography was performed in STAPLES projection using a 5 Fr. Pigtail catheter. LV to AO pullback pressures were then recorded.The arterial sheath was pulled and a TR Band was applied for hemostasis CORONARY ANGIOGRAPHY DOMINANCE: Right Dominant LEFT HEART ASSESSMENT Left Ventricular Ejection Fraction: by LV Gram 40 % Anterior Hypokinesis - Moderate Depressed Left Ventricular systolic function LEFT MAIN: Mild luminal irregularities less than 30% LEFT ANTERIOR DESCENDING ARTERY: Previously stented LAD which is subtotally occluded proximally and distal LAD collaterals CIRCUMFLEX ARTERY: Mild luminal irregularities less than 30% RIGHT CORONARY ARTERY: Mild to moderate diffuse disease noted with distal collaterals filling the distal left anterior descending artery COMPLICATIONS No Complications PROCEDURE MEDICATIONS Fentanyl 50 mcg IV Versed 1 mg IV Versed 1 mg IV Fentanyl 25 mcg IV Versed 1 mg IV Oxygen: 2 L/min via nasal cannula SUMMARY OF HEMODYNAMIC DATA Time AIR REST ECG 08:09:51 AO 149/81 (110) SA 08:52:59 LV 153/17, 31 09:00:16 LV 151/14, 09:00:23 LV 138/16, 29 09:00:54 LV 142/17, 29 09:01:01 LVp 149/18, 27 09:01:08 AOp 153/81 (114) 09:01:13 Signed By Yogesh Fenton MD On 05/18/2023 09:21:59 Yogesh Fenton MD
--- NOTE | 2023-05-18 09:33 | ECHOCS_ITS ---
Reason For Study: CORONARY ARTERY DISEASE Procedure This was a 2D Doppler, Color Flow transthoracic echocardiogram. Patient was scanned in supine position during reflux assessment. Exam performed portable in patient room. Left Ventricle Normal LV size. The estimated ejection fraction is 40 %. Stage 1 diastolic dysfunction. There are regional wall motion abnormalities as specified. [place] : Akinetic. Mid-anteroseptal : Akinetic. Mid- Anterior : Akinetic. Lateral [place] : Hypokinetic. Right Ventricle Normal RV size. Normal systolic function. Atria Normal left atrium. Normal right atrium. Mitral Valve Normal mitral valve. Tricuspid Valve Normal tricuspid valve. Aortic Valve Trisinus/trileaflet aortic valve. Mild focal aortic valve calcification. Mild (1+) aortic valve insufficiency. Pulmonic Valve Normal pulmonic valve. Great Vessels Normal aortic root. The pulmonary artery is normal size. Normal inferior vena cava. Pericardium/Pleural No pericardial effusion. Medication Diluted definity 3ml given slow IV push to enhance endocardial definition. MMode/2D Measurements & Calculations LVIDd: 5.0 cm IVSd: 1.3 cm LVOT diam: 2.1 cm LVIDs: 3.5 cm LVPWd: 0.99 cm RVDd: 3.8 cm FS: 29.7 % LVOT area: 3.6 cm2 Ao root diam: 4.0 cm LAV(MOD-bp): 59.3 ml LVAd ap4: 38.7 cm2 LAV(MOD-bp) Indexed: 25.4 ml/m2 LVLd ap4: 9.7 cm LAV(MOD-sp2): 80.1 ml EDV(MOD-sp4): 127.6 ml LAV(MOD-sp4): 44.3 ml EDV(sp4-el): 131.5 ml LVAs ap4: 29.1 cm2 LVLs ap4: 8.4 cm ESV(MOD-sp4): 81.1 ml ESV(sp4-el): 85.9 ml EF(MOD-sp4): 36.4 % EF(sp4-el): 34.7 % LVAd ap2: 33.8 cm2 SV(MOD-sp4): 46.5 ml SV(MOD-sp2): 44.9 ml LVLd ap2: 8.6 cm EDV(MOD-sp2): 108.5 ml EDV(sp2-el): 112.9 ml LVAs ap2: 25.4 cm2 LVLs ap2: 8.0 cm ESV(MOD-sp2): 63.6 ml ESV(sp2-el): 69.0 ml EF(MOD-sp2): 41.4 % SV(sp4-el): 45.6 ml LA dimension(2D): 2.9 cm LA A4 area: 18.8 cm2 RA A4 area: 19.7 cm2 TAPSE: 2.0 cm Time Measurements MV dec time: 0.39 sec Doppler Measurements & Calculations MV E max brain: 57.0 cm/sec Lat Peak E' Brain: 6.1 cm/sec Med Peak E' Brain: 5.7 cm/sec MV A max brain: 83.0 cm/sec E/E' lat: 9.4 E/E' med: 10.0 MV E/A: 0.69 Ao V2 max: 138.2 cm/sec LV V1 max: 95.0 cm/sec MV dec slope: 145.9 cm/sec2 Ao max P.6 mmHg LV V1 max P.6 mmHg Ao V2 mean: 89.7 cm/sec LV V1 mean P.7 mmHg Ao mean P.8 mmHg LV V1 mean: 60.9 cm/sec Ao V2 VTI: 29.0 cm LV V1 VTI: 19.2 cm AV (velocity ratio): 0.66 FADY(I,D): 2.4 cm2 FADY(V,D): 2.5 cm2 SV(LVOT): 68.9 ml PA V2 max: 73.1 cm/sec PA max PG (full): 0.61 mmHg ECHO/Echo Complete W/ Contrast Interpretation Summary Normal LV size. The estimated ejection fraction is 40 %. There are regional wall motion abnormalities as specified. Stage 1 diastolic dysfunction. Contrast injection was performed. Ordering Physician: Yogesh Fenton Performed By: Kelsey Santoro RDCS
--- NOTE | 2023-05-18 13:20 | PCM.DC.SUM ---
Providers Date of Admission: 05/17/23 Primary Care Physician: Shea Primary Care Phys Consultations 05/17/23 15:59 Consult: Cardiology Routine Consulting Provider: Yogesh Fenton Reason for Consult: chest pain EMERGENT Consult: No MD Notified: Yes Date Notified: 05/17/23 Time Notified: 15:47 Method of Notification: Verbal Method of Consult:: In-Person Reason For Visit: CHEST PAIN, ELEVATED BLOOD PRESSUE Diagnosis Discharge Diagnosis (1) Chest pain: Status: Acute Code(s): R07.9 - Chest pain, unspecified Qualifiers: Chest pain type: chest pain due to myocardial ischemia Ischemic chest pain type: unstable angina pectoris Qualified Code(s): I20.0 - Unstable angina Plan: Troponins negative. LHC: shows an EF of 40%, Left main with stenosis <30%, previously stented LAD subtotally occluded proximally and distal collaterals, circumflex <30%, RCA mild to moderate diffuse disease with dital collaterals DW Dr. Fenton, who feels the occlusion is chronic and feels no additional intervention is needed and to continue medical mgmt. Continue ASA, metoprolol, lisinopril Pt has known statin intolerance with severe myalgias. check echo Pt is back to [place] permanently after living in [place] for the past 12 years. (2) Hyperlipemia: Status: Acute Code(s): E78.5 - Hyperlipidemia, unspecified Qualifiers: Hyperlipidemia type: pure hypercholesterolemia Qualified Code(s): E78.00 - Pure hypercholesterolemia, unspecified Plan: Intolerant of statins. Try ezetimibe. Plan Chronic conditions: fibromyalgia-patient does not take any medicine currently for fibromyalgia Disposition: to home after bedrest and echo results. Medications at Discharge Home Medications aspirin 81 mg tablet,delayed release (Ecotrin Low Strength) 81 mg PO DAILY HEART HEALTH 05/17/23 coQ10 (ubiquinol) 100 mg capsule 100 mg PO DAILY 05/17/23 cod liver oil 1 cap PO DAILY 05/17/23 ezetimibe 10 mg tablet (Zetia) 10 mg PO DAILY #30 tabs 05/18/23 lisinopril 20 mg tablet 20 mg PO DAILY #30 tabs 05/18/23 metoprolol succinate 50 mg tablet,extended release 24 hr 50 mg PO DAILY #30 tabs 05/18/23 Hospital Course Operations None Procedures 2-D Echocardiogram and Cardiac catheterization Summary of Care Provided Minutes Spent on Discharge: 32 Weight / BMI Weight Weight: 105.5 kg Body Mass Index (BMI) 29.0 ABG / Lab / Microbiology Data 05/17/23 13:04 05/17/23 13:04 Laboratory: Laboratory Results - last 24 hr 05/17/23 13:04: WBC 8.1, RBC 5.10, Hgb 14.4, Hct 45.6, MCV 89.4, MCH 28.2, MCHC 31.6 L, RDW Std Deviation 47.4 H, RDW Coeff of Yamile 14.6, Plt Count 204, MPV 10.0, Immature Gran % (Auto) 0.200, Neut % (Auto) 53.0, Lymph % (Auto) 36.2, [place] % (Auto) 8.1, Eos % (Auto) 2.0, Baso % (Auto) 0.5, Absolute Neuts (auto) 4.3, Absolute Lymphs (auto) 2.95, Nucleated RBC % 0, PT 12.3, INR 0.9, APTT 33.5, Sodium 134 L, Potassium 3.9, Chloride 103, Carbon Dioxide 27.0, Anion Gap 4 L, BUN 11, Creatinine 0.87, Estim Creat Clear Calc 103.87, Est GFR (MDRD) Af Amer 114, Est GFR (MDRD) Non-Af 94, BUN/Creatinine Ratio 12.6, Glucose 96, Calcium 9.3, Troponin I High Sens 19 05/17/23 15:34: Troponin I High Sens 24, Triglycerides 94, Cholesterol 298 H, LDL Cholesterol 234 H, VLDL Cholesterol 19, HDL Cholesterol 45 05/17/23 19:05: Troponin I High Sens 28 Radiography Diagnostic Testing: Radiology Impression Chest X-Ray 05/17/23 13:45 IMPRESSION: Mild degree of vascular congestion. Electronically Signed: Paxton Nagel MD at 14:27 EDT , D/C Instructions Discharge Diet: Low fat / Low cholesterol Call your doctor if you observe: Shortness of breath and Chest pain Meaningful Use Info Meaningful Use Diagnoses (Choose all that apply): None applicable Discharge Plan Admission Admit Date/Time: 05/17/23 15:38 Primary Reason for Your Visit: chest pain Attending Provider: Donaldo Chua Primary Care Provider: Care Physician,No Primary Consulting Providers: Yogesh Fenton; Shelton Bates Instructions Additional Instructions / Restrictions: Please follow up with a primary care physician and cardiology. You have chronic blockage in you coronary vessels. Your body has developed collateral vessels to bypass the blockage. Therefore, you did not require any cardiac intervention (stents). It is important to take you medications. Your cholesterol is very high. You said you cannot tolerate statins. We can try Zetia to see if that helps. Discharge Orders/Prescriptions Prescriptions: New lisinopril 20 mg Tablet 20 mg PO DAILY Qty: 30 0RF metoprolol succinate 50 mg Tablet Extended Release 24 Hr 50 mg PO DAILY Qty: 30 0RF ezetimibe [Zetia] 10 mg tablet 10 mg PO DAILY Qty: 30 0RF Continued aspirin [Ecotrin Low Strength] 81 mg tablet,delayed release (DR/EC) 81 mg PO DAILY coQ10 (ubiquinol) 100 mg capsule 100 mg PO DAILY Patient Comments: GETS OTC UNSURE OF STRENGTH cod liver oil Capsule 1 cap PO DAILY Referrals / Follow Up: [facility] [Provider Group] - Within 1 Month Care Physician,No Primary [Primary Care Provider] - Disposition Disposition (needs filled in before D/C Order can be placed): Home, Self Care Charges/Coding Visit Charges Inpatient E&M: 20390 Disch Hosp >30min
--- NOTE | 2023-05-18 14:43 | CASEMGMT ---
Patient has order for discharge. RN CM in to discuss needs at discharge. Patient denies needs at this time. Patient states he does have a new PCP that he has not yet met: Yonny Stafford. RN CM encouraged patient to follow-up with his PCP after discharge. Patient had no further questions/concerns at this time. Carlyn ELIASN, RN, CM
--- NOTE | 2023-05-18 14:45 | NURSING ---
Bedrest complete ambulated patient. cath site c/d/i. no hematoma noted
== END 2023-05-18 09:26 | disposition home or self-care (01) ==
LOC: ED 14:22 → PCU 15:14
PROVIDERS: Admitting Provider Internal Medicine; Emergency Provider Emergency Medicine
DX: I25.110 Atherosclerotic heart disease of native coronary artery with unstable angina pectoris (principal); I10 Essential (primary) hypertension; Z95.5 Presence of coronary angioplasty implant and graft; Z87.891 Personal history of nicotine dependence; R00.2 Palpitations; Z79.82 Long term (current) use of aspirin; M79.7 Fibromyalgia; I25.2 Old myocardial infarction; M79.602 Pain in left arm; R42 Dizziness and giddiness; R94.31 Abnormal electrocardiogram [ECG] [EKG]; I35.1 Nonrheumatic aortic (valve) insufficiency; E78.00 Pure hypercholesterolemia, unspecified
CPT/HCPCS: 36415; 71045; 80048; 80061; 84484; 85025; 85610; 85730; 93005; 93306; 93458; 99152; 99153; 99221; 99285; J7040; Q9957; Q9967; A4216; C1769; C1894; C8929; G0378

== ENCOUNTER → 2023-06-27 | Outpatient (CLI) | payer MEDICARE, SELFPAY ==
[2023-06-27 15:27] LABS: Absolute Neutrophil Count 3.8 X10^3/uL (2.0-7.7); Basophil# 0.05 X10^3/uL; Basophil% 0.6 % (0-1); Eosinophil# 0.24 X10^3/uL; Eosinophils% 2.8 % (0-5); Hemoglobin 14.4 g/dL (13.0-16.5); Lymphocyte % 44.4 % (19-41); Mean Corpuscular Hgb 28.7 pg (27.0-32.0); Mean Corpuscular Volume 89.8 fL (80-94); Mean Platelet Vol. 10.4 fl (6.2-12.0); Monocyte# 0.68 X10^3/uL; Monocyte% 7.9 % (0-10); NRBC Flagged by Analyzer 0 % (0-5); Neutrophil # 3.77 X10^3/uL (2.7-7.7); Neutrophil % 44.1 % (47-70); Platelet Count 212 K/mm3 (150-450); RBC Distribution Width CV 14.6 % (11.6-14.6); RBC Distribution Width SD 48.2 fl (35.1-43.9); Red Blood Count 5.01 M/mm3 (4.6-6.2); White Blood Count 8.6 K/mm3 (4.4-11.0)
[2023-06-27 15:51] LABS: AST(SGOT) 16 U/L (15-37); Alanine Aminotransfer ALT/SGPT 20 U/L (16-61); Albumin, Serum 3.3 g/dL (3.2-5.0); Alkaline Phosphatase 109 U/L (45-117); Anion Gap 5 (5-15); BUN 17 mg/dL (7-18); BUN/Creat Ratio 17.4 RATIO (10-20); Calcium,Total 8.6 mg/dL (8.5-10.1); Chloride 104 mmol/L (98-107); Cholesterol 267 mg/dL (200); Creatinine, Serum 0.98 mg/dL (0.70-1.30); EST Glomerular Filtration Rate 82 mL/min (>60); Est Glom Filt Rate - Afr Amer 99 mL/min (>60); Globulin 4.4 g/dL (2.2-4.2); Glucose 101 mg/dL (74-106); High Density Lipoprotein 42 mg/dL; Potassium 4.4 mmol/L (3.5-5.1); Protein, Total 7.7 g/dL (6.4-8.2); Sodium Level 137 mmol/L (136-145); Triglycerides 199 mg/dL; Very Low Density Lipoprotein 40 mg/dL (5-40)
[2023-06-27 16:13] LABS: BNP,B-Type NATRIURETIC PEPTIDE 82.2 pg/mL (0-100)
== END | disposition home or self-care (01) ==
PROVIDERS: Referring Provider Nurse Practitioner Gerontology; Visit Provider Nurse Practitioner Gerontology
DX: R06.09 Other forms of dyspnea (principal); E78.5 Hyperlipidemia, unspecified
CPT/HCPCS: 36415; 80048; 80061; 80076; 83880; 85025

== ENCOUNTER 2023-07-05 13:38 | Emergency (ER) | payer OTHER, SELFPAY ==
[2023-07-05 13:39] VITALS: BP 138/85; PULSE 80; RESP 18; TEMP 36.5; O2SAT 95; BMI 28.8
--- NOTE | 2023-07-05 14:17 | EKG12_ITS ---
Test Reason : CHEST PAIN Blood Pressure : / mmHG Vent. Rate : 079 BPM Atrial Rate : 000 BPM P-R Int : 000 ms QRS Dur : 106 ms QT Int : 412 ms P-R-T Axes : 000 -34 081 degrees QTc Int : 472 ms Accelerated Junctional rhythm Left axis deviation Septal infarct (cited on or before 17-MAY-2023) Abnormal ECG Confirmed by ELOISE NUNES, TREASURE ([id number]), editor at large LESLIE MONTALVO ([id number]) on 07/06/2023 1:57:53 PM Referred By: Confirmed By:TREASURE NAVAS MD
--- NOTE | 2023-07-05 14:17 | ED.VIS.CHEST ---
HPI History of Present Illness Chief Complaint: Chest Pain Informant: patient Onset/Context/Timing Onset: Today Activity at onset: sudden Timing: Continuous Quality: Positive for Pressure Location: Substernal Worsened By: - (Laying on his sides) Relieved By: Remaining Still (Sitting) Associated Symptoms: Positive for Dyspnea, Lightheadedness and Palpitations; Negative for Nausea, Vomiting, Diaphoresis, Cough, Fever or Acid Reflux Narrative Narrative: Patient presents with chest pain that began this morning. Patient states it is over the upper sternal area. Patient states it radiates into his abdomen. Patient describes it as a pressure. Patient states that he had been having some pain in his left upper chest over the past couple months. Patient states it radiates into his left arm. Patient states it is worse when he lays on his sides and is better when he is sitting still. Patient admits to some shortness of breath with the pain. Patient also admits to some lightheadedness and palpitations. Patient denies any nausea or vomiting. Patient denies any diaphoresis. Patient denies any cough or fever. CVD Risk Factors: Positive for Hypertension; Negative for Diabetes, Hypercholesterolemia, Family History 1' </=55 or Smoking PE Risk Factors: Negative for Recent Travel/Surgery, Recent Immobilization, Prior DVT or PE, Cancer or OCP + Smoking + >/=35 PFSH PFSH Medical History Coronary artery disease Fibromyalgia Former smoker History of coronary artery disease Hyperlipemia Hypertension Irregular heart beat Myocardial infarction Home Medications aspirin 81 mg tablet,delayed release (Ecotrin Low Strength) 81 mg PO DAILY HEART HEALTH 05/17/23 [History Last Taken 05/15/23] coQ10 (ubiquinol) 100 mg capsule 100 mg PO DAILY 05/17/23 [History Last Taken 05/17/23] cod liver oil 1 cap PO DAILY 05/17/23 [History Last Taken 05/17/23] ezetimibe 10 mg tablet (Zetia) 10 mg PO DAILY #90 tabs 06/13/23 [Rx Last Taken Unknown] lisinopril 20 mg tablet 20 mg PO DAILY #90 tabs 06/13/23 [Rx Last Taken Unknown] metoprolol succinate 50 mg tablet,extended release 24 hr 50 mg PO DAILY #90 tabs 06/13/23 [Rx Last Taken Unknown] nitroglycerin 0.4 mg sublingual tablet 0.4 mg sublingual Q5-15M PRN chest pain #25 tabs 06/27/23 [Rx Last Taken Unknown] isosorbide mononitrate 60 mg tablet,extended release 24 hr 60 mg PO DAILY this is a dose increase #30 tabs 06/30/23 [Rx Last Taken Unknown] ranolazine 1,000 mg tablet,extended release,12 hr 1,000 mg PO BID This is a dose increase #60 tabs 07/01/23 [Rx Last Taken Unknown] Allergy/AdvReac Type Severity Reaction Status Date / Time gabapentin Allergy Intermediate Hives Verified 07/05/23 13:39 [id number] Reductase AdvReac Severe Other Verified 07/05/23 13:39 Inhibitor tramadol [From Ultram] AdvReac Intermediate super Verified 07/05/23 13:39 jittery Surgical History History of surgical removal of intestinal structure Hx of appendectomy Hx of heart artery stent Social History Smoking Status: Former smoker substance use type: marijuana ROS ROS ED Constitutional Constitutional ED: Denies chills or fever(s) Eyes Eyes: Denies blurry vision or change in vision ENT ENT ED: Denies rhinorrhea or sore throat Cardiovascular Cardiovascular: Reports chest pain and palpitations Respiratory/Chest Respiratory/Chest: Reports dyspnea; Denies cough Gastrointestinal Gastrointestinal: Denies nausea or vomiting Genitourinary Genitourinary ED: Denies dysuria or hematuria Musculoskeletal Musculoskeletal: Denies back pain or neck pain Integumentary Denies abscess or rash Neurologic Neurologic: Denies headache(s) or weakness Allergic/Immunologic Allergic/Immunologic ED: Denies mouth swelling or urticaria EXAM Physical Exam Const Vital Signs: 07/05/23 13:39 07/05/23 13:42 07/05/23 14:32 Temperature 97.7 F L Temperature Source Temporal Pulse Rate 80 69 Respiratory Rate 18 17 Respiratory Effort Normal Non-Labored Blood Pressure 138/85 H 124/79 H Blood Pressure Mean 102 94 Pulse Ox 95 95 Oxygen Delivery Method Room Air Room Air 07/05/23 15:38 Temperature Temperature Source Pulse Rate 64 Respiratory Rate 16 Respiratory Effort Blood Pressure 122/83 H Blood Pressure Mean 96 Pulse Ox 95 Oxygen Delivery Method Room Air Positive well nourished, well developed and obese General Appearance ED: well developed and NAD Nutritional Appearance: obese HEENT Reports moist mucous membranes Neck supple and no JVD Chest Wall inspection of chest normal and palpation of chest normal Resp normal respiratory effort and clear to auscultation bilaterally Cardio regular rate and regular rhythm GI soft to palpation, non-tender and non-distended Neuro oriented x3, CN's II-XII intact bilaterally and no sensory deficits noted Sensorium / Orientation: awake and alert Motor Exam: strength 5/5 throughout Heart Score History: Slightly/Non-Suspicious ECG: Nonspecific Repolarization Age: >45 - <65 years Risk Factors: >/= 3 Risk Factors or History of CAD Troponin: </= Normal Limit Score: 4 MDM MDM MDM Narrative Medical decision making narrative: Differential diagnosis includes cardiac dysrhythmia, cardiac ischemia, pneumonia, pneumothorax, electrolyte abnormality, dehydration, and anxiety. Patient has a Wells score of 0. I do not feel this is from a pulmonary embolism. EKG will be obtained to assess for cardiac dysrhythmia and cardiac ischemia. Chest x-ray will be obtained to assess for pneumonia and pneumothorax. CBC will be obtained to assess for leukocytosis and anemia. Basic metabolic profile will be obtained to assess for electrolyte abnormality and renal function. High-sensitivity troponin will be obtained to assess for cardiac ischemia. Lab Data Attestation: I reviewed the patient's lab results. Lab results narrative: CBC was reviewed and was within normal limits. Basic metabolic profile was reviewed and was within normal limits. High-sensitivity troponin was reviewed and was normal at 8. Labs: Laboratory Results - last 24 hr 07/05/23 13:40 WBC 8.4 RBC 4.93 Hgb 14.1 Hct 43.5 MCV 88.2 MCH 28.6 MCHC 32.4 RDW Std Deviation 48.1 H RDW Coeff of [place] 14.7 H Plt Count 207 MPV 10.4 Immature Gran % (Auto) 0.200 Neut % (Auto) 48.9 Lymph % (Auto) 40.9 [place] % (Auto) 7.1 Eos % (Auto) 2.3 Baso % (Auto) 0.6 Absolute Neuts (auto) 4.1 Absolute Lymphs (auto) 3.44 Nucleated RBC % 0 Sodium 134 L Potassium 4.3 Chloride 101 Carbon Dioxide 30.0 Anion Gap 3 L BUN 15 Creatinine 0.98 Estim Creat Clear Calc 92.21 Est GFR (MDRD) Af Amer 99 Est GFR (MDRD) Non-Af 82 BUN/Creatinine Ratio 15.3 Glucose 116 H Calcium 8.8 Troponin I High Sens 8 Radiography Diagnostic Testing: Clinical Impression(s) from Imaging Studies Chest X-Ray 07/05/23 14:20 IMPRESSION: Hyperinflation. The lungs are clear. Electronically Signed: Paxton Nagel MD at 14:41 EDT , EKG Initial EKG: Attestation: I personally reviewed and interpreted this EKG as follows: Interpretation: Sinus Rhythm (79) and No Acute Injury Pattern Comments: EKG was obtained. On my independent interpretation, it showed a normal sinus rhythm with a rate of 79. FL interval, QRS interval, and QTc intervals were all normal. There is left axis deviation at -34. There are no acute ST or T wave changes. Treatment and Re-Evaluation :: Patient was given aspirin and sublingual nitroglycerin here. Patient had no change in his pain with nitroglycerin. Patient was advised of his findings. Patient has a HEART score of 4. Case was discussed with Dr. Fenton. He recommended obtaining a delta troponin and doubling his isosorbide. He states the patient is not amenable to PCI. Patient was advised of the recommendations from Dr. Fenton. Care of the patient will be turned over to the oncoming physician pending delta troponin results. If the delta troponin results are normal, the patient can be discharged with instructions to follow-up with Dr. Fenton in 5 to 7 days. Patient understands and is agreeable with the plan. All questions were answered. Discharge Plan Triage Chief Complaint: Chest Pain ED Provider: Donaldo Encinas Dx/Rx/DC Orders Clinical Impression: Chest pain, History of coronary artery disease Instructions: ED Chest Pain, Uncertain Cause Prescriptions: No Action nitroglycerin 0.4 mg tablet, sublingual 0.4 mg sublingual Q5-15M PRN (Reason: chest pain) Qty: 25 3RF Rx Instructions: do not exceed 3 doses per episode aspirin [Ecotrin Low Strength] 81 mg tablet,delayed release (DR/EC) 81 mg PO DAILY coQ10 (ubiquinol) 100 mg capsule 100 mg PO DAILY Patient Comments: GETS OTC UNSURE OF STRENGTH cod liver oil Capsule 1 cap PO DAILY ezetimibe [Zetia] 10 mg tablet 10 mg PO DAILY Qty: 90 3RF lisinopril 20 mg tablet 20 mg PO DAILY Qty: 90 3RF metoprolol succinate 50 mg tablet extended release 24 hr 50 mg PO DAILY Qty: 90 3RF isosorbide mononitrate 60 mg tablet extended release 24 hr 60 mg PO DAILY Qty: 30 11RF ranolazine 1,000 mg tablet extended release 12 hr 1,000 mg PO BID Qty: 60 11RF Primary Care Provider: Yogesh Fenton Referrals: Yogesh Fenton MD [Primary Care Provider] - 5-7 Days Activity Restrictions/Additional Instructions: Take 2 tablets of your isosorbide daily. Disposition Disposition: Home, Self Care
--- NOTE | 2023-07-05 14:20 | RAD_ITS ---
STUDY: X-RAY CHEST REASON FOR EXAM: Male, 62 years old. Chest pain TECHNIQUE: Single AP portable view of the chest. COMPARISON: Comparison is made with prior study dated May 17, 2023. FINDINGS: EKG electrodes are seen. Hyperinflation. No acute abnormality is seen. There is no demonstrated pleural abnormality. Normal size heart. Normal mediastinum and andreina. Normal visualized pulmonary arteries. There is atherosclerotic tortuosity of the aortic arch and descending thoracic aorta. There are diffuse degenerative changes of the visualized thoracic spine. Normal visualized ribs, clavicles, and shoulders. There is no demonstrated abnormality of the visualized soft tissue structures of the upper abdomen. RAD/Chest 1 View (Portable) IMPRESSION: Hyperinflation. The lungs are clear. Electronically Signed: Paxton Nagel MD at 14:41 EDT ,
[2023-07-05] MEDS: Aspirin 81 MG TAB.CHEW 324 MG PO (14:23)
[2023-07-05 14:32] VITALS: BP 124/79; PULSE 69; RESP 17; O2SAT 95
[2023-07-05 14:32] LABS: Absolute Lymphocyte Count 3.44 X10^3/uL (0.83-4.51); Absolute Neutrophil Count 4.1 X10^3/uL (2.0-7.7); Basophil# 0.05 X10^3/uL; Basophil% 0.6 % (0-1); Eosinophil# 0.19 X10^3/uL; Eosinophils% 2.3 % (0-5); Hematocrit 43.5 % (40-54); Hemoglobin 14.1 g/dL (13.0-16.5); Lymphocyte # 3.44 X10^3/ul (0.83-4.51); Lymphocyte % 40.9 % (19-41); Mean Corp Hgb Conc 32.4 g/dL (32-36); Mean Corpuscular Hgb 28.6 pg (27.0-32.0); Mean Corpuscular Volume 88.2 fL (80-94); Mean Platelet Vol. 10.4 fl (6.2-12.0); Monocyte% 7.1 % (0-10); NRBC Flagged by Analyzer 0 % (0-5); Neutrophil # 4.11 X10^3/uL (2.7-7.7); Neutrophil % 48.9 % (47-70); Platelet Count 207 K/mm3 (150-450); RBC Distribution Width CV 14.7 % (11.6-14.6); RBC Distribution Width SD 48.1 fl (35.1-43.9); Red Blood Count 4.93 M/mm3 (4.6-6.2); White Blood Count 8.4 K/mm3 (4.4-11.0)
[2023-07-05 14:46] LABS: Anion Gap 3 (5-15); BUN 15 mg/dL (7-18); BUN/Creat Ratio 15.3 RATIO (10-20); Calcium,Total 8.8 mg/dL (8.5-10.1); Chloride 101 mmol/L (98-107); Creatinine, Serum 0.98 mg/dL (0.70-1.30); EST Glomerular Filtration Rate 82 mL/min (>60); Est Glom Filt Rate - Afr Amer 99 mL/min (>60); Estimated Creatinine Clearance 92.21 ml/min; Glucose 116 mg/dL (74-106); Potassium 4.3 mmol/L (3.5-5.1); Sodium Level 134 mmol/L (136-145); Troponin-I HS 8 pg/mL (3.0-78.0)
--- NOTE | 2023-07-05 14:57 | ED.RN ---
pt did not want nitro d/t side effect of headache
[2023-07-05 15:38] VITALS: BP 122/83; PULSE 64; RESP 16; O2SAT 95
[2023-07-05 16:49] LABS: Troponin-I HS 8 pg/mL (3.0-78.0)
== END 2023-07-05 17:09 | disposition home or self-care (01) ==
PROVIDERS: Emergency Provider Emergency Medicine; PCP Internal Medicine Cardiovascular Disease; Visit Provider Emergency Medicine
DX: R07.9 Chest pain, unspecified (principal); F12.90 Cannabis use, unspecified, uncomplicated; I25.10 Atherosclerotic heart disease of native coronary artery without angina pectoris; I25.2 Old myocardial infarction; E66.9 Obesity, unspecified; Z79.82 Long term (current) use of aspirin; Z79.899 Other long term (current) drug therapy; Z87.891 Personal history of nicotine dependence
CPT/HCPCS: 71045; 80048; 84484; 85025; 93005; 99284; A4216

== ENCOUNTER → 2023-08-18 | Outpatient (CLI) | payer MEDICARE, SELFPAY ==
--- NOTE | 2023-08-18 07:50 | ECHOLC_ITS ---
Reason For Study: Dyspnea/SOB Procedure This was a limited 2D transthoracic echocardiogram. The study was technically difficult. Contrast injection was performed. Exam performed in department. Left Ventricle Normal LV size. The estimated ejection fraction is 45 %. Mild to moderate segmental systolic dysfunction (see wall motion). Stage 3 diastolic dysfunction. [place] : Akinetic. Mid-anteroseptal : Severely Hypokinetic. Right Ventricle Normal RV size. Normal systolic function. Atria The left atrium is moderately enlarged. The right atrium is mildly enlarged. Mitral Valve Normal mitral valve. Tricuspid Valve Normal tricuspid valve. Aortic Valve Trisinus/trileaflet aortic valve. Pulmonic Valve The pulmonic valve is not well visualized. Great Vessels Normal aortic root. The pulmonary artery is normal size. Normal inferior vena cava. Pericardium/Pleural No pericardial effusion. Medication 22 gauge I.V. with prn adaptor inserted into right arm. Diluted definity 3ml given slow IV push to enhance endocardial definition. MMode/2D Measurements & Calculations LVIDd: 6.0 cm IVSd: 0.89 cm LA dimension: 3.8 cm LVIDs: 4.7 cm LVPWd: 0.98 cm FS: 21.9 % LAV(MOD-sp4): 74.1 ml LVAd ap4: 35.9 cm2 SV(MOD-sp4): 58.1 ml LVLd ap4: 8.1 cm EDV(MOD-sp4): 127.3 ml EDV(sp4-el): 135.0 ml LVAs ap4: 25.2 cm2 LVLs ap4: 7.3 cm ESV(MOD-sp4): 69.2 ml ESV(sp4-el): 73.6 ml EF(MOD-sp4): 45.6 % EF(sp4-el): 45.4 % SV(sp4-el): 61.4 ml LA A4 area: 25.3 cm2 RA A4 area: 22.2 cm2 Time Measurements MV dec time: 0.27 sec Doppler Measurements & Calculations MV E max brain: 83.5 cm/sec Lat Peak E' Brain: 11.1 cm/sec Med Peak E' Brain: 8.7 cm/sec MV A max brain: 28.2 cm/sec E/E' lat: 7.5 E/E' med: 9.6 MV E/A: 3.0 AI max brain: 428.5 cm/sec MV dec slope: 314.9 cm/sec2 AI max P.4 mmHg AI dec slope: 296.3 cm/sec2 AI P1/2t: 423.6 msec ECHO/Echo Limited w/Contrast Interpretation Summary Normal LV size. The estimated ejection fraction is 45 %. Mild to moderate segmental systolic dysfunction (see wall motion). Stage 3 diastolic dysfunction. Contrast injection was performed. Ordering Physician: Asia Childress Referring Physician: Yogesh Fenton Performed By: Gagan Grande RCS
--- NOTE | 2023-08-18 07:50 | AAVD_ITS ---
Reason For Study: R/O aneurysm for ECP Aorta Measurements Aorta Doppler Measurements Proximal aorta measures1.81 x 1.83cm. in cross- Peak systolic flow velocities within the proximal sectional axis. aorta measure 52.4 cm/sec. Proximal aorta measures1.85cm. in longitudinal Peak systolic flow velocities within the mid aorta axis. measure 66.9 cm/sec. Mid aorta measures1.76 x 1.74cm. in cross- Peak systolic flow velocities within the distal sectional axis. aorta measure 85.0 cm/sec. Mid aorta measures1.72cm. in longitudinal axis. Distal aorta measures1.36 x 1.29cm. in cross- sectional axis. Distal aorta measures1.38cm. in longitudinal axis. Left Iliac Artery Left iliac artery measures .96 x .91 cm. in the cross-sectional axis. Left iliac artery measures .96 cm. in the longitudinal axis. Peak systolic velocity in the left iliac artery measures 95.6 cm/sec. Right Iliac Artery Right iliac artery measures .91 x .94 cm. in the cross-sectional axis. Right iliac artery measures .97 cm. in the longitudinal axis. Peak systolic velocity in the right iliac artery measures 181.2 cm/sec. Procedure Aorta IVC Iliac vasculature or bypass grafts [id number]. The exam was diagnostic. Difficult study due to bowel gas. Exam performed in department. VL/Abd Aortic/IVC Duplex scan Interpretation Summary Aorta patent, normal caliber. Bilateral iliac arteries patent, normal caliber Ordering Physician: Yogesh Fenton Performed By: Shreyas Roman RVT
== END | disposition home or self-care (01) ==
PROVIDERS: Referring Provider Internal Medicine Cardiovascular Disease; Visit Provider Internal Medicine Cardiovascular Disease
DX: R06.09 Other forms of dyspnea (principal); I20.89 Other forms of angina pectoris; R10.13 Epigastric pain
CPT/HCPCS: 93308; 93978; Q9957; A4216; C8924

== ENCOUNTER → 2023-09-08 | Outpatient (CLI) | payer MEDICARE, SELFPAY ==
[2023-09-08 09:55] LABS: Absolute Lymphocyte Count 3.11 X10^3/uL (0.83-4.51); Absolute Neutrophil Count 4.6 X10^3/uL (2.0-7.7); Basophil# 0.04 X10^3/uL; Basophil% 0.5 % (0-1); Eosinophil# 0.14 X10^3/uL; Eosinophils% 1.6 % (0-5); Hematocrit 44.2 % (40-54); Hemoglobin 14.1 g/dL (13.0-16.5); Lymphocyte # 3.11 X10^3/ul (0.83-4.51); Lymphocyte % 36.5 % (19-41); Mean Corp Hgb Conc 31.9 g/dL (32-36); Mean Corpuscular Hgb 29.6 pg (27.0-32.0); Mean Corpuscular Volume 92.9 fL (80-94); Mean Platelet Vol. 10.2 fl (6.2-12.0); Monocyte# 0.65 X10^3/uL; Monocyte% 7.6 % (0-10); NRBC Flagged by Analyzer 0 % (0-5); Neutrophil # 4.56 X10^3/uL (2.7-7.7); Neutrophil % 53.6 % (47-70); Platelet Count 231 K/mm3 (150-450); RBC Distribution Width CV 14.6 % (11.6-14.6); RBC Distribution Width SD 50.2 fl (35.1-43.9); Red Blood Count 4.76 M/mm3 (4.6-6.2); White Blood Count 8.5 K/mm3 (4.4-11.0)
[2023-09-08 10:27] LABS: Hemoglobin A1c 5.1 % (3.8-5.6)
[2023-09-08 10:34] LABS: Anion Gap 7 (5-15); BUN 14 mg/dL (7-18); BUN/Creat Ratio 14.7 RATIO (10-20); Calcium,Total 9.2 mg/dL (8.5-10.1); Chloride 105 mmol/L (98-107); Creatinine, Serum 0.95 mg/dL (0.70-1.30); EST Glomerular Filtration Rate 85 mL/min (>60); Est Glom Filt Rate - Afr Amer 102 mL/min (>60); Glucose 109 mg/dL (74-106); PSA,Total - Annual Screen 1.47 ng/mL (0.00-4.00); Potassium 4.4 mmol/L (3.5-5.1); Sodium Level 139 mmol/L (136-145); Thyroid Stim Hormone (TSH) 1.56 uIU/mL (0.358-3.74)
== END | disposition home or self-care (01) ==
PROVIDERS: PCP Nurse Practitioner; Referring Provider Internal Medicine Cardiovascular Disease; Visit Provider Internal Medicine Cardiovascular Disease
DX: I10 Essential (primary) hypertension (principal); R73.09 Other abnormal glucose; R06.09 Other forms of dyspnea; Z12.5 Encounter for screening for malignant neoplasm of prostate
CPT/HCPCS: 36415; 80048; 83036; 84153; 84443; 85025; G0103

== ENCOUNTER → 2023-09-15 | Outpatient (CLI) | payer MEDICARE, SELFPAY | END | disposition home or self-care (01) | LOC: PSN 09:12 | PROVIDERS: PCP Nurse Practitioner; Referring Provider Internal Medicine Cardiovascular Disease; Visit Provider Internal Medicine Cardiovascular Disease | DX: I49.8 Other specified cardiac arrhythmias (principal); I25.118 Atherosclerotic heart disease of native coronary artery with other forms of angina pectoris; I44.0 Atrioventricular block, first degree | CPT/HCPCS: 93225; 93226 ==

== ENCOUNTER 2023-10-05 08:15 | Outpatient (RCR) | payer MEDICARE, SELFPAY | END 2023-10-05 23:59 | LOC: CR 08:15 | PROVIDERS: PCP Nurse Practitioner; Referring Provider Internal Medicine Cardiovascular Disease; Visit Provider Internal Medicine Cardiovascular Disease | DX: I25.118 Atherosclerotic heart disease of native coronary artery with other forms of angina pectoris (principal) | CPT/HCPCS: 92971; G0166 ==

== ENCOUNTER 2023-10-28 08:15 | Outpatient (RCR) | payer MEDICARE, SELFPAY | END 2023-11-03 23:59 | LOC: CR 08:15 | PROVIDERS: PCP Nurse Practitioner; Referring Provider Internal Medicine Cardiovascular Disease; Visit Provider Internal Medicine Cardiovascular Disease | DX: I25.118 Atherosclerotic heart disease of native coronary artery with other forms of angina pectoris (principal) | CPT/HCPCS: 92971; G0166 ==